=== PATIENT | male | born 1945 | race Caucasian/White ===

== ENCOUNTER 2019-09-23 09:56 | Emergency (ER) | payer MEDICARE, BC ==
--- NOTE | 2019-09-23 10:11 | ER Document Report ---
ED Medical Screen (RME) - General Chief Complaint: Fall Stated Complaint: FALL-HEAD INJURY Time Seen by Provider: 09/23/19 10:07 Mode of Arrival: Ambulatory Information source: Patient Notes: 74-year-old male presented to ED for complaint of fall hitting his head on the hearth. He states he is on blood thinners. He states he has a sinus feeling that he usually gets with allergies now. Denies any neurological changes at this time. He is a former smoker, daily glass of wine, no illicit drugs does use CBD oil. Patient is alert oriented respirations regular nonlabored speaking in full sentences. Is on Xarelto for A. fib. I have greeted and performed a rapid initial assessment of this patient. A comprehensive ED assessment and evaluation of the patient, analysis of test results and completion of medical decision making process will be conducted by an additional ED providers. - Related Data Allergies/Adverse Reactions: Sulfa (Sulfonamide Antibiotics) Allergy (Intermediate, Verified 09/23/19 10:05) Physical Exam - Vital signs Vitals: Temp Pulse Resp BP Pulse Ox 98.3 F 62 16 154/88 H 96 09/23/19 10:01 09/23/19 10:01 09/23/19 10:01 09/23/19 10:01 09/23/19 10:01 Course - Vital Signs Vital signs: Temp Pulse Resp BP Pulse Ox 98.3 F 62 16 154/88 H 96 09/23/19 10:01 09/23/19 10:01 09/23/19 10:01 09/23/19 10:01 09/23/19 10:01
--- NOTE | 2019-09-23 10:34 | RADIOLOGY REPORT (SQ) ---
EXAM DESCRIPTION: CT HEAD WITHOUT COMPLETED DATE/TIME: 09/23/2019 10:25 am REASON FOR STUDY: head injury COMPARISON: None. TECHNIQUE: Axial images acquired through the brain without intravenous contrast. Images reviewed wi th bone, brain and subdural windows. Additional sagittal and coronal reconstructions were generated. Images stored on PACS. All CT scanners at this facility use dose modulation, iterative reconstruction, and/or weight based d osing when appropriate to reduce radiation dose to as low as reasonably achievable (ALARA). [facility]: Dose Right [facility]: CareDose [facility]: Dose Right [facility]: Teradose 4D [facility]: [email or web address] RADIATION DOSE: CT Rad equipment meets quality standard of care and radiation dose reduction techniq ues were employed. CTDIvol: 53.2 mGy. DLP: 1044 mGy-cm. mGy. LIMITATIONS: None. FINDINGS: VENTRICLES: Normal size and contour. CEREBRUM: No masses. No hemorrhage. No midline shift. No evidence for acute infarction. Normal gra y/white matter differentiation. No areas of low density in the white matter. CEREBELLUM: No masses. No hemorrhage. No alteration of density. No evidence for acute infarction. EXTRAAXIAL SPACES: No fluid collections. No masses. ORBITS AND GLOBE: No intra- or extraconal masses. Normal contour of globe without masses. CALVARIUM: No fracture. PARANASAL SINUSES: There is mucosal thickening in the left maxillary sinus. There is high attenuatio n centrally which could represent blood products. There is bilateral ethmoid air cell disease. No e vidence of sinus fracture. Minimal mucosal thickening in the right maxillary sinus. SOFT TISSUES: No mass or hematoma. OTHER: No other significant finding. IMPRESSION: 1. No acute intracranial event. 2. Maxillary and ethmoid sinusitis. EVIDENCE OF ACUTE STROKE: NO. COMMENT: Quality ID # 436: Final reports with documentation of one or more dose reduction techniques (e.g., Automated exposure control, adjustment of the mA and/or kV according to patient size, use of iterative reconstruction technique) TECHNICAL DOCUMENTATION: JOB ID: [id number] [employer]- All Rights Reserved Reading location - IP/workstation name: [email or web address]
--- NOTE | 2019-09-23 12:33 | ER Document Report ---
HPI - HPI Patient complains to provider of: FALL Time Seen by Provider: 09/23/19 10:07 Onset: Just prior to arrival Onset/Duration: Sudden Quality of pain: Achy Pain Level: 1 Context: This 74-year-old male presents to the emergency department after he fell and hit his head on a rock. He reports he was standing on a stool hanging [employer] decorations when he slipped hung onto the [place] tree fell slowly onto a table and then fell and hit his head on a rock. He reports the rock was right by his fireplace. Denies change in LOC. Patient reports he is currently prescribed Xarelto for atrial fib. He denies fever vomiting diarrhea. Denies headache. is at his side reports patient is acting normal. Associated Symptoms: None Exacerbated by: Denies Relieved by: Denies Similar symptoms previously: No Recently seen / treated by doctor: No - REPRODUCTIVE Reproductive: DENIES: : Past Medical History - General Information source: Patient - Social History Smoking Status: Former Smoker Cigarette use (# per day): No Chew tobacco use (# tins/day): No Frequency of alcohol use: daily glass of wine Drug Abuse: None Occupation: RETIRED Lives with: Family Family History: None Patient has suicidal ideation: No Patient has homicidal ideation: No - Past Medical History Cardiac Medical History: Reports: Hx Atrial Fibrillation Past Surgical History: Reports: Hx Orthopedic Surgery Vertical Provider Document - CONSTITUTIONAL Agree With Documented VS: Yes Exam Limitations: No Limitations General Appearance: WD/WN, No Apparent Distress - INFECTION CONTROL TRAVEL OUTSIDE OF THE [place] IN LAST 30 DAYS: No - HEENT HEENT: Atraumatic, Normal ENT Exam, Normocephalic, PERRLA. negative: Conjuctival Injection - NECK Neck: Normal Inspection, Supple. negative: Lymphadenopathy-Left, Lymphadenopathy-Right - RESPIRATORY Respiratory: Breath Sounds Normal, No Respiratory Distress - CARDIOVASCULAR Cardiovascular: Regular Rate - GI/ABDOMEN Gastrointestinal: Abdomen Soft, Abdomen Non-Tender - MUSCULOSKELETAL/EXTREMETIES Musculoskeletal/Extremeties: JT NÚÑEZ - NEURO Level of Consciousness: Awake, Alert, Appropriate Motor/Sensory: No Motor Deficit - DERM Integumentary: Warm, Dry Course - Re-evaluation Re-evalutation: 09/23/19 19:05 74-year-old male presents emergency department after he fell while trying to hang a [place] decorations and hit his head on a rock that was left by his fireplace as a decoration. He denies headache. He denies fever vomiting diarrhea. reports he is acting normal. Patient is laughing happy no distress. No injury noted to his head. Patient does have some ecchymosis to his right upper arm. Denies pain. Has full range of motion. CT was negative for bleed. and patient were instructed on signs and symptoms of head injuries. They were also instructed to rest follow-up with his primary care provider. He verbalized understanding to all instructions. Head CT 09/23/19 10:11 IMPRESSION: 1. No acute intracranial event. 2. Maxillary and ethmoid sinusitis. EVIDENCE OF ACUTE STROKE: NO. - Vital Signs Vital signs: Temp Pulse Resp BP Pulse Ox 98.3 F 62 16 154/88 H 96 09/23/19 10:01 09/23/19 10:01 09/23/19 10:01 09/23/19 10:01 09/23/19 10:01 - Diagnostic Test Radiology reviewed: Reports reviewed Discharge - Discharge Clinical Impression: Head injury Qualifiers: Encounter type: initial encounter Qualified Code(s): S09.90XA - Unspecified injury of head, initial encounter Condition: Stable Disposition: HOME, SELF-CARE Instructions: Head Injury Precautions ([facility]) Additional Instructions: *You have been evaluated for head injury *Rest, quiet Follow up with your primary care provider within one week *Return to ED for worsening condition, changes, needs, confusion, vomiting Monitor your blood pressure. Your blood pressure was elevated today. This may be because you were anxious, in pain or because you need medication. It is important to follow up with your primary care provider for full evaluation. Forms: Elevated Blood Pressure Referrals: ELIA MARIE PA [Primary Care Provider] - Follow up in 1 week
[2019-09-23 12:43] VITALS: BP 148/78
== END 2019-09-23 12:42 | disposition home or self-care (01) ==
LOC: ER 09:56
DX: S09.90XA Unspecified injury of head, initial encounter (principal); W17.89XA Other fall from one level to another, initial encounter; Y92.009 Unspecified place in unspecified non-institutional (private) residence as the place of occurrence of the external cause; I48.91 Unspecified atrial fibrillation; Z79.01 Long term (current) use of anticoagulants
CPT/HCPCS: 70450; 99283

== ENCOUNTER → 2020-04-02 | Outpatient (CLI) | payer MEDICARE, BC ==
--- NOTE | 2020-04-02 14:27 | RADIOLOGY REPORT (SQ) ---
EXAM DESCRIPTION: VENOUS UNILATERAL LOWER IMAGES COMPLETED DATE/TIME: 04/02/2020 2:00 pm REASON FOR STUDY: LLE PAIN M79.662 PAIN IN LEFT LOWER LEG COMPARISON: None. TECHNIQUE: Dynamic and static mcgarry scale and color images acquired of the left leg venous system. Se lected spectral images acquired with additional compression and augmentation maneuvers. The contralat eral common femoral vein and saphenofemoral junction were also imaged. Images stored on PACS. LIMITATIONS: None. FINDINGS: LEFT COMMON FEMORAL: Normal phasicity, compression and augmentation. No visualized echogenic material on g ray scale. No defects on color images. FEMORAL: Normal compression and augmentation. No visualized echogenic material on mcgarry scale. No defe cts on color images. POPLITEAL: Normal compression, augmentation. No visualized echogenic material on mcgarry scale. No defec ts on color images. CALF VESSELS: Normal compression, augmentation. No visualized echogenic material on mcgarry scale. No de fects on color images. GSV and SSV: Normal compression, augmentation. No visualized echogenic material on mcgarry scale. No def ects on color images. ANY DEEP VENOUS INSUFFICIENCY: Not evaluated. ANY EVIDENCE OF POPLITEAL CYST: No. OTHER: No other significant finding. RIGHT COMMON FEMORAL VEIN AND SAPHENOFEMORAL JUNCTION: Normal phasicity, compression and augmentation. No visualized echogenic material on mcgarry scale. No de fects on color images. IMPRESSION: NO EVIDENCE OF DVT OR SVT IN THE LEFT LEG. TECHNICAL DOCUMENTATION: JOB ID: [id number] 2010 [employer]- All Rights Reserved Reading location - IP/workstation name: [id number]
== END ==
LOC: RAD 13:18
PROVIDERS: ATTEND Physician Assistant
DX: M79.662 Pain in left lower leg (principal); M54.9 Dorsalgia, unspecified
CPT/HCPCS: 93971

== ENCOUNTER → 2020-09-02 | Outpatient (CLI) | payer MEDICARE, BC ==
--- NOTE | 2020-09-02 08:44 | RADIOLOGY REPORT (SQ) ---
EXAM DESCRIPTION: CT LT LOWER EXTREMITY WITHOUT IMAGES COMPLETED DATE/TIME: 09/02/2020 7:55 am REASON FOR STUDY: M25.552 PAIN IN LEFT HIP M25.552 PAIN IN LEFT HIP COMPARISON: None. TECHNIQUE: CT scan of the left hip performed without intravenous or oral contrast. Images reviewed with soft tissue and bone windows. Reconstructed coronal and sagittal MPR images reviewed. All imag es stored on PACS. All CT scanners at this facility use dose modulation, iterative reconstruction, and/or weight based d osing when appropriate to reduce radiation dose to as low as reasonably achievable (ALARA). [facility]: Dose Right [facility]: CareDose [facility]: Dose Right [facility]: Teradose 4D [facility]: [employer] RADIATION DOSE: CT Rad equipment meets quality standard of care and radiation dose reduction techniq ues were employed. CTDIvol: 26.5 mGy. DLP: 991 mGy-cm. mGy. LIMITATIONS: Distal stem of the femoral hardware is excluded by collimation. FINDINGS: PELVIC BONES: No acute fracture. No worrisome bone lesions. VISUALIZED SPINE: Not imaged. SYMPTOMATIC HIP: Postsurgical changes from the left total hip arthroplasty. There is evidence of kenisha or periprosthetic fracture with cerclage wire fixation about the proximal femur. Persistent linear l ucencies along the fracture components without complete fusion. Associated heterotopic ossification about the proximal femur and bony sclerosis. There is no definite acute fracture. Superior acetabul ar osteophytes. OPPOSITE HIP: Not imaged. PELVIC SOFT TISSUES: Scattered vascular calcifications. Scattered colonic diverticula. No discrete mass. No drainable collection. EXTRAPELVIC SOFT TISSUES: No significant findings. OTHER: No other significant finding. IMPRESSION: 1. No definite evidence of acute bony abnormality. Of note, distal stem of the left fe moral hardware is excluded by collimation. 2. Postsurgical changes from left total hip arthroplasty. Evidence of prior bijan-prostatic fracture with cerclage wire fixation about the proximal femur. TECHNICAL DOCUMENTATION: JOB ID: [id number] Quality ID # 436: Final reports with documentation of one or more dose reduction techniques (e.g., Au tomated exposure control, adjustment of the mA and/or kV according to patient size, use of iterative reconstruction technique) 2010 [employer]- All Rights Reserved Reading location - IP/workstation name: [email or web address]
--- NOTE | 2020-09-05 15:54 | RADIOLOGY REPORT (SQ) ---
EXAM DESCRIPTION: NM 3 PHASE BONE SCAN IMAGES COMPLETED DATE/TIME: 09/02/2020 12:15 pm REASON FOR STUDY: M25.552 PAIN IN LEFT HIP M25.552 PAIN IN LEFT HIP COMPARISON: No available imaging studies for comparison. RADIONUCLIDE AND DOSE: 20 millicuries Tc99m MDP. The route of agent administration: Intravenous. ADDITIONAL DRUGS AND DOSES: None. TECHNIQUE: Following injection of the radiopharmaceutical, serial blood flow images acquired. Equil ibrium blood pool images then acquired. Routine delayed images at 3 hour acquired of the areas of cl inical concern with additional focused images as needed. AREA OF INTEREST: Left femur LIMITATIONS: None. FINDINGS: VASCULAR FLOW IMAGES: No asymmetry or focal areas of hyperemia. BLOOD POOL IMAGES: No asymmetry or focal areas of soft-tissue hyper-perfusion. BONES: There is focally increased uptake at the distal aspect of the left femoral stem on delayed citlalli ging. Additional mild uptake throughout the visualized lumbar spine and bilateral knees, right great er than left. KIDNEYS: Not imaged. Radiotracer noted within the urinary bladder. OTHER: No other significant finding. IMPRESSION: Focally increased uptake along the distal left femur on delayed imaging. Correlation w ith same-day radiographs demonstrate no evidence of acute bony abnormality however there is some late ral migration of the femoral stem in relation to the femur. COMMENT: Quality measure 147: Current bone scan is compared with any available plain radiographs, p rior bone scans, and CT/MRI. TECHNICAL DOCUMENTATION: JOB ID: [id number] 2010 [employer]- All Rights Reserved Reading location - IP/workstation name: [email or web address]
== END ==
LOC: RAD 07:32
PROVIDERS: ATTEND Orthopaedic Surgery
DX: M25.552 Pain in left hip (principal); Z47.1 Aftercare following joint replacement surgery; Z96.642 Presence of left artificial hip joint
CPT/HCPCS: 78315; 73700; A9503; Q9969

== ENCOUNTER → 2020-09-05 | Outpatient (CLI) | payer MEDICARE, BC ==
--- NOTE | 2020-09-05 13:12 | RADIOLOGY REPORT (SQ) ---
EXAM DESCRIPTION: FEMUR LEFT IMAGES COMPLETED DATE/TIME: 09/05/2020 11:15 am REASON FOR STUDY: M25.552 PAIN IN LEFT HIP M25.552 PAIN IN LEFT HIP COMPARISON: None. NUMBER OF VIEWS: Two views. TECHNIQUE: Two radiographic images acquired of the left femur to include hip and knee in at least on e projection. LIMITATIONS: None. FINDINGS: MINERALIZATION: Normal. BONES: Left hip arthroplasty in good position. Left knee arthroplasty in good position. No acute fe moral fracture. SOFT TISSUES: No obvious swelling or foreign body. OTHER: No other significant finding. IMPRESSION: NEGATIVE STUDY OF THE LEFT FEMUR. NO RADIOGRAPHIC EVIDENCE OF ACUTE INJURY. TECHNICAL DOCUMENTATION: JOB ID: [id number] 2010 [employer]- All Rights Reserved Reading location - IP/workstation name: [email or web address]
== END ==
LOC: RAD 10:41
PROVIDERS: ATTEND Orthopaedic Surgery
DX: M25.552 Pain in left hip (principal)

== ENCOUNTER → 2020-10-01 | Outpatient (CLI) | payer MEDICARE, BC ==
--- NOTE | 2020-10-01 17:11 | RADIOLOGY REPORT (SQ) ---
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 Left femur radiograph 09/05/2020. Three-phase bone scan 09/02/2020. TECHNIQUE: CT scan of the left hip performed without intravenous or oral contrast. Images reviewed with soft tissue and bone windows. Reconstructed coronal and sagittal MPR images reviewed. All imag es stored on PACS. All CT scanners at this facility use dose modulation, iterative reconstruction, and/or weight based d osing when appropriate to reduce radiation dose to as low as reasonably achievable (ALARA). [facility]: Dose Right [facility]: CareDose [facility]: Dose Right [facility]: Teradose 4D [facility]: [employer] RADIATION DOSE: CT Rad equipment meets quality standard of care and radiation dose reduction techniq ues were employed. CTDIvol: 4.2 mGy. DLP: 277 mGy-cm. mGy. LIMITATIONS: None. FINDINGS: PELVIC BONES: No acute fracture. No worrisome bone lesions. VISUALIZED SPINE: Occluded. SYMPTOMATIC HIP: The left femoral arthroplasty with long-stem intramedullary component and multiple c erclage wires is again demonstrated in the left femur. At the distal tip of the intramedullary compo nent, the femoral stem is very near the cortex with overlying cortical buttressing. No acute fractur e. No evidence of hardware loosening. There is diffuse osteopenia. The left knee arthroplasty is v isualized with normal alignment. SOFT TISSUES: Colonic diverticulosis without evidence of diverticulitis. No pelvic adenopathy or free fluid. Normal appearance of the muscles and soft tissues. No subcutaneous mass or fluid. OTHER: No other significant finding. IMPRESSION: Postoperative changes in the left femur with intramedullary long-stem arthroplasty and m ultiple cerclage wires. The distal tip of the femoral component is very near the cortex with overlyi ng cortical buttressing. No evidence of loosening. Diffuse osteopenia. TECHNICAL DOCUMENTATION: JOB ID: [id number] Quality ID # [id number]: Final reports with documentation of one or more dose reduction techniques (e.g., Au tomated exposure control, adjustment of the mA and/or kV according to patient size, use of iterative reconstruction technique) 2010 [employer]- All Rights Reserved Reading location - IP/workstation name: [email or web address]
== END ==
LOC: RAD 09:30
PROVIDERS: ATTEND Orthopaedic Surgery
DX: Z47.1 Aftercare following joint replacement surgery (principal); T84.84XD Pain due to internal orthopedic prosthetic devices, implants and grafts, subsequent encounter; X58.XXXD Exposure to other specified factors, subsequent encounter; Z96.642 Presence of left artificial hip joint